=== PATIENT | male | born 1945 | race African-American/Black ===

== ENCOUNTER 2017-12-15 10:16 | Day surgery (SDC) | payer OTHER, MEDICAID, MEDICARE ==
[~2017-12-15 10:16] MED LIST: IV RINGERS,LACTATED 1000ML 1,000 ML IV; LIDOCAINE 1% PF 2 ML VIAL. ID; MORPHINE SULFATE 2 MG/ML DISP.SYRIN. IV; ONDANSETRON PF 4 MG/2 ML VIAL. IV; PROCHLORPERAZINE 10 MG/2 ML VIAL. IV; fentaNYL PF VIAL 100 MCG/2 ML VIAL IV
[2017-12-15] MEDS: IV RINGERS,LACTATED 1000ML 1,000 ML IV (10:54)
[2017-12-15] MEDS ORDERED: BENZOCAINE ONE 20% MUCOSAL SPRAY. (11:30)
[2017-12-15] MEDS ORDERED: LIDOCAINE 2% TOPICAL JELLY 5GM TUBE. TP (11:30)
[2017-12-15] MEDS ORDERED: LIDOCAINE 2% VISCOUS 15 ML SOLUTION. (11:30)
[2017-12-15] MEDS: BENZOCAINE ONE 20% MUCOSAL SPRAY. MM (12:02)
[2017-12-15] MEDS: LIDOCAINE 2% TOPICAL JELLY 5GM TUBE. TP (12:03)
[2017-12-15] MEDS: LIDOCAINE 2% VISCOUS 15 ML SOLUTION. SWSW (12:03)
[2017-12-15] MEDS ORDERED: LIDOCAINE 2% PF Vial for OR 5 ML VIAL. (12:35)
[2017-12-15] MEDS ORDERED: PROPOFOL 20 ML IV (12:35)
== END 2017-12-15 13:49 | disposition home or self-care (01) ==
LOC: SURG 10:16
DX: I08.3 Combined rheumatic disorders of mitral, aortic and tricuspid valves (principal); Z98.42 Cataract extraction status, left eye; Z98.41 Cataract extraction status, right eye; Z96.1 Presence of intraocular lens; E78.00 Pure hypercholesterolemia, unspecified; I10 Essential (primary) hypertension; Z72.89 Other problems related to lifestyle; F17.210 Nicotine dependence, cigarettes, uncomplicated
CPT/HCPCS: 93312; 93320; 93325; J2001; J2704

== ENCOUNTER 2018-02-16 06:17 | Outpatient (CLI) | payer BC, MEDICAID ==
[2017-12-15 13:33] VITALS: BP 181/63
[~2018-02-16 06:17] MED LIST changes: -0.9 % SODIUM CHLORIDE 10 ML DISP.SYRIN. IV PRN; -CONTRAST GIVEN. MC PRN; -HEPARIN for ARTERIAL LINE 1,500 ML ONE; -IODIXANOL 320 MG/ML 100 ML VIAL. IART ONE; -IODIXANOL 320 MG/ML 100 ML VIAL. ONE; -IV NORMAL SALINE 1000ML BAG 1,000 ML IV SCH; -LIDOCAINE 1% PF 30 ML VIAL. INJ ONE; -LIDOCAINE 1% PF 30 ML VIAL. ONE; -MIDAZOLAM HCL/PF 5 MG/5 ML VIAL. IV ONE; -MIDAZOLAM HCL/PF 5 MG/5 ML VIAL. ONE; -NITROGLYCERIN SUBLINGUAL 0.4 MG BOTTLE OF 25. SL PRN; -fentaNYL PF VIAL 100 MCG/2 ML VIAL IV ONE; -fentaNYL PF VIAL 100 MCG/2 ML VIAL ONE
--- NOTE | 2018-02-16 08:27 | RAD ---
CT CHEST WO CONTRAST Indication: PRE OP CORONARY ANGIOGRAM. Technique: Noncontrast CT imaging was performed of the chest, multiplanar reconstruction images submitted. One or more of the following individualized dose reduction techniques were utilized for this examination: 1. Automated exposure control 2. Adjustment of the mA and/or kV according to patient size 3. Use of iterative reconstruction technique. Contrast: None Comparison: None Findings: There is severe calcification of the aortic valvular leaflets. 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 Descending thoracic aorta is not significantly dilated about 2.7 cm. There is atherosclerotic calcification of the thoracic aorta. There is severe coronary calcification. There is no pericardial effusion, infiltrate, pneumothorax, or pleural fluid. Heart is slightly enlarged. There is centrilobular emphysema. There is multilevel thoracic spondylosis. There is minimal linear atelectasis left lower lobe near the lung base. IMPRESSION: 1. There is severe coronary calcification. There is severe calcification of the aortic valvular leaflets. 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 Electronically signed by: Bk Kim MD (02/16/2018 8:24 AM) [id number]
--- NOTE | 2018-02-16 10:07 | RAD ---
MR#: [id number] Date of Study: 02/16/2018 Ordering Physician: ROBB HALL, Referring Physician: ROBB HALL, Tech: Marcelo Castro MBA, RDMS, RVT, RDCS, RTR APPROVED REPORT Patient Location: OUT-PATIENT Laterality:Bilateral Doppler Spectral Velocity Analysis Right Left pCCA 27/08 cm/spCCA 67/11 cm/s mCCA 40/10 cm/smCCA 72/11 cm/s dCCA 41/10 cm/sdCCA 64/08 cm/s Bulb 252/56 cm/sBulb 170/26 cm/s ECA 294/ cm/sECA pICA 294/30 cm/spICA 138/20 cm/s Micah 19/06 cm/smICA 130/13 cm/s dICA 20/06 cm/sdICA 108/15 cm/s Vert. 57/ cm/sVert. 88/ cm/s Subcl. 129/ cm/sSubcl. 96/ cm/s ICA/CCA 7.17ICA/CCA 2.06 Findings Max scale images of the bilateral carotid bulbs reveals severe calcified obstructive plaque on limit ed images. There is diffuse intimal hyperplasia noted. Spectral waveforms and color doppler on the right are abnormal consistent with turbulent flow and sig nficant stenosis. There is likely a critical SEBASTIAN stenosis in the proximal to mid segment. Distal ICA flow is severely blunted. Elevated velocities are also noted in the RECA suggestive of greater than 50% stenosis. On the left, spectral waveforms and color doppler reveal 50-69% (moderate) stenosis involving the ICA . The left ECA is occluded. Abnormal ICA to CCA ratio on the right at 7.3. Critical Notification Critical Value: Yes Physician Notified Date: 02/16/2018 Time: 10:06 Physician Name:Dr. Haddad <Conclusion> 1. Critical Right proximal to mid ICA stenosis, probably > 95% 2. Moderate left ICA disease. 3. Antegrade vertebral velocities. 4. Occluded left ECA. Signed by : Artem Mcnair, Electronically Approved : 02/16/2018 10:06:10
== END 2018-02-16 13:30 | disposition home or self-care (01) ==
LOC: US 06:17
PROVIDERS: ATTEND Thoracic Surgery (Cardiothoracic Vascular Surgery)
DX: Z01.810 Encounter for preprocedural cardiovascular examination (principal); I25.10 Atherosclerotic heart disease of native coronary artery without angina pectoris; M47.894 Other spondylosis, thoracic region; J98.11 Atelectasis; J43.2 Centrilobular emphysema; I65.23 Occlusion and stenosis of bilateral carotid arteries; I70.0 Atherosclerosis of aorta; I10 Essential (primary) hypertension; E78.00 Pure hypercholesterolemia, unspecified; F17.200 Nicotine dependence, unspecified, uncomplicated
CPT/HCPCS: 71250; 93880

== ENCOUNTER → 2018-02-16 | Outpatient (CLI) | payer BC, MEDICAID ==
[2018-02-16] VITALS (10 sets, daily range): BP systolic 123–190; BP diastolic 60–93
[~2018-02-16] VITALS: Ht 175.3 cm; Wt 86.2 kg
[~2018-02-16] MED LIST changes: +0.9 % SODIUM CHLORIDE 10 ML DISP.SYRIN. IV PRN; +AMLO10TA2 PO; +ASPI-630 PO; +ATOR20TA58 PO; +CONTRAST GIVEN. MC PRN; +HEPARIN for ARTERIAL LINE 1,500 ML ONE; +IODIXANOL 320 MG/ML 100 ML VIAL. IART ONE; +IODIXANOL 320 MG/ML 100 ML VIAL. ONE; +IV NORMAL SALINE 1000ML BAG 1,000 ML IV SCH; -IV RINGERS,LACTATED 1000ML 1,000 ML IV; -LIDOCAINE 1% PF 2 ML VIAL. ID; +LIDOCAINE 1% PF 30 ML VIAL. INJ ONE; +LIDOCAINE 1% PF 30 ML VIAL. ONE; +MIDAZOLAM HCL/PF 5 MG/5 ML VIAL. IV ONE; +MIDAZOLAM HCL/PF 5 MG/5 ML VIAL. ONE; -MORPHINE SULFATE 2 MG/ML DISP.SYRIN. IV; +NITROGLYCERIN SUBLINGUAL 0.4 MG BOTTLE OF 25. SL PRN; -ONDANSETRON PF 4 MG/2 ML VIAL. IV; -PROCHLORPERAZINE 10 MG/2 ML VIAL. IV; -fentaNYL PF VIAL 100 MCG/2 ML VIAL IV; +fentaNYL PF VIAL 100 MCG/2 ML VIAL IV ONE; +fentaNYL PF VIAL 100 MCG/2 ML VIAL ONE
[2018-02-16 08:00] LABS: HEMATOCRIT 39.7 % (39.0-53.0); HEMOGLOBIN 13.5 g/dL (13.0-17.5); RED BLOOD COUNT 4.7 x10^6/uL (4.30-5.70); WHITE BLOOD COUNT 7.4 x10^3/uL (4.0-11.0)
[2018-02-16 08:10] LABS: PROTHROMBIN TIME PATIENT 12.6 SEC (11.7-14.0)
--- NOTE | 2018-02-16 08:53 | PDOC ---
MODERATE SEDATION ASSESSMENT RISKS/ALTERNATIVES Risks/Alternatives Risks and alternatives of this type of sedation and procedure discussed with: RISK/ALTERNATIVES: Patient H & P ON CHART H & P H & P on chart and reviewed for co-morbid conditions and appropriate labs. H&P ON CHART: Yes STATUS PREG STATUS ASSESSED: N/A MEDS/ALLERGIES REVIEWED Meds/Allergies Reviewed Medications and Allergies including time and route of recently administered narcotics and sedatives. MEDS/ALLERGIES REVIEWED: Yes ASA RATING ASA RATING: II AIRWAY ASSESSMENT Airway Assessment Airway patency, oral function limitations, presence of caps, crowns, dentures, partials, and ability to extend neck assessed. AIRWAY ASSESSMENT: Yes MALLAMPATI SCORE MALLAMPATI SCORE: II PRE-SEDATION ASSESSMENT PRE-SEDATION ASSESSMENT: Yes JUDI KOWALSKI MD Feb 16, 2018 08:53
--- NOTE | 2018-02-16 16:54 | CARD ---
MR#: [id number] Date of Study: 02/16/2018 Ordering Physician: JUDI CULLEN, Referring Physician: JUDI CULLEN, Tech: Eugenio Sy RT (R) APPROVED REPORT Procedures Selective coronary angiogram Aortic root injection 2 The patient is a 72-year-old male who was found to have severe aortic stenosis. Heart catheterization was recommended to evaluate his coronary arteries prior to probable aortic valve surgery. Risks and benefits of the procedure were discussed with the patient. He agreed to proceed. After informed consent was obtained the patient was brought to the heart catheterization lab. The are a of the right femoral artery was prepared the usual manner with Betadine, sterile draping and local anesthetic. An 18-gauge needle was used to enter the right femoral artery, a wire placed and a 6 Fren ch sheath placed over the wire. A 6 [place] JL4 diagnostic catheter was advanced to the ascending aort a over a guidewire. This proved to be too small and was replaced with a JL 5 diagnostic catheter. Thi s was used to engage the left coronary system and sequential injections in various views were obtaine d. A 6 [place] Jorge Luis right diagnostic catheter was then advanced to the ascending aorta. It was reema ble to obtain an image of the right coronary artery. It was then removed. A pigtail catheter was adva nced to the ascending aorta. A 30 SANCHEZ left ventriculogram was performed. A 6 [place] JR4 diagnostic c atheter was then advanced to the ascending aorta. It was used for injection of the right coronary art sung with injections that were not subselective. Sequential injections in various views were obtained. The catheter was removed and a pigtail catheter was again placed the aortic root and a second aortic root injection in the this time in the KHMER position was obtained. The catheter was removed from the patient. An injection of the sheath showed normal placement. The sheath was removed and sealed with a n Angio-Seal product. The patient was moved to the holding area in stable condition. Findings. Hemodynamics. Aortic root pressure of 140/56. Coronaries. Left main. The left main was a normal-size vessel with no lesions. Left anterior descending. The LAD had a calcified proximal greater than 70-75% lesion followed by a m ild area of post lesion dilatation with a lesion after the dilatation of 40% or greater. There was a lso a distal LAD lesion of 40%. Left circumflex. The left circumflex was a dominant vessel. It a proximal 40-45% lesion. The ramus in termediate branch had a proximal 50% lesion. Right coronary artery. The right coronary artery was a small nondominant vessel. It had a proximal 35 % lesion. Aortic root. The injection the aortic root showed a heavily calcified aortic valve. The root was mildly dilated. T here was no significant aortic insufficiency. <Conclusion> Calcified coronary arteries. Significant lesion in the proximal LAD. Borderline lesion in the ramus intermediate branch. Small nondominant right coronary artery with no significant lesions. Dilated aortic root with a heavily calcified aortic valve. Signed by : Judi Cullen MD Electronically Approved : 02/16/2018 16:53:33
== END | disposition home or self-care (01) ==
LOC: CCL 06:26
PROVIDERS: ATTEND Internal Medicine Cardiovascular Disease
DX: I25.10 Atherosclerotic heart disease of native coronary artery without angina pectoris (principal); I35.0 Nonrheumatic aortic (valve) stenosis
CPT/HCPCS: 36415; 85027; 85610; 93458; 93567; 99152; 99153; C1769; C1771; C1892; J1644; J2250; J3010; 93454